=== PATIENT | male | born 1940 | race Caucasian/White ===

== ENCOUNTER 2017-09-10 11:05 | Emergency (ER) | payer OTHER, MEDICARE ==
[~2017-09-10] VITALS: Ht 175.3 cm; Wt 81.6 kg
--- NOTE | 2017-09-10 11:07 | ED GI/GU/ABDOMINAL COMPLAINT ---
History of Present Illness General Chief Complaint: General Adult Stated Complaint: KIDNEY STONE Source: patient, old records Exam Limitations: no limitations Vital Signs & Intake/Output Vital Signs & Intake/Output Vital Signs Date Time Temp Pulse Resp B/P B/P Pulse O2 O2 Flow FiO2 Mean Ox Delivery Rate 09/10 1401 97.8 94 18 128/81 97 Room Air Room Air 09/10 1114 Room Air 09/10 1109 98.4 84 22 135/84 96 Room Air Allergies Coded Allergies: NO KNOWN ALLERGIES (06/13/12) Triage Nurses Notes Reviewed? yes Onset: Gradual Duration: day(s): Timing: recent history Quality/Severity: sharpness, severe Severity Numbers: 9 Location: left flank HPI: 77YO MALE with hx of kidney stones, CAD s/p pacemaker and stent on plavix, BIBA to ED complaining of worsening kidney stone pain. Patient was recently diagnosed with 8 mm kidney stone, he is being evaluated by Dr. Butler. Patient is scheduled to have stone removal via stent on 09/17/17. Patient has been taking oxycodone 5 mg every 6 hours for pain. Patient states that today he was taking this medication was not helping his pain. Pain is described as left flank, sharp, /10. Patient called his urology office and they told him to try a double dose. Pain was still unrelieved so patient came to the emergency department. Patient reports nausea yesterday however no vomiting. Patient reports associated chills with his pain. Patient denies dysuria, hematuria, urinary retention, diarrhea, fevers. (Denise ISAAC,Rosy Reddy) Reconcile Medications Alfuzosin HCl (Alfuzosin HCl ER) 10 MG TAB.ER.24H 1 TAB PO DAILY UNKNOWN ( Reported) Clopidogrel Bisulfate (Clopidogrel) 75 MG TABLET 1 TAB PO DAILY BLOOD THINNER (Reported) Ezetimibe (Zetia) 10 MG TABLET 1 TAB PO DAILY CHOLESTEROL (Reported) Gemfibrozil 600 MG TABLET 1 TAB PO BID CHOLESTEROL (Reported) Metoprolol Succinate 25 MG TAB 1 TAB PO DAILY HEART (Reported) Oxycodone HCl/Acetaminophen (Percocet 5-325 MG Tablet) 5 MG-325 MG TABLET 1 TAB PO BID PRN pain Trazodone HCl 100 MG TABLET 1 TAB PO QPM SLEEP (Reported) (Kathy WATKINS,Matt Mustafa) Past History Medical History Any Pertinent Medical History? see below for history Cardiovascular: CAD Surgical History Surgical History: pacemaker, stent Psychosocial History What is your primary language Panamanian Family History Hx Contributory? No (Rosy Lucero) Review of Systems Review of Systems Constitutional: Reports: see HPI. EENTM: Reports: no symptoms. Respiratory: Reports: no symptoms. Cardiovascular: Reports: no symptoms. GI: Reports: no symptoms. Genitourinary: Reports: see HPI. Musculoskeletal: Reports: see HPI. Skin: Reports: no symptoms. Neurological/Psychological: Reports: no symptoms. Hematologic/Endocrine: Reports: no symptoms. Immunologic/Allergic: Reports: no symptoms. All Other Systems: Reviewed and Negative (Rosy Lucero) Physical Exam Physical Exam General Appearance: well developed/nourished, no apparent distress, alert, awake Head: atraumatic, normal appearance Eyes: Bilateral: normal appearance. Ears, Nose, Throat, Mouth: hearing grossly normal Neck: normal inspection, supple, full range of motion Respiratory: normal breath sounds, no respiratory distress, lungs clear Cardiovascular: regular rate/rhythm Gastrointestinal: normal bowel sounds, soft, non-tender, no organomegaly Back: normal inspection, normal range of motion, no CVA tenderness Extremities: normal range of motion Neurologic/Psych: awake, alert, oriented x 3 Skin: intact, normal color, warm/dry Core Measures ACS in differential dx? No Sepsis Present: No Sepsis Focused Exam Completed? No (Rosy Lucero) Progress Differential Diagnosis: bowel obstruction, inflamm bowel dis, prostatitis, pyelonephritis, SBO, ureterolithiasis, UTI/pyelo Plan of Care: Orders Procedure Date/time Status URINALYSIS 09/10 1107 Complete COMPREHENSIVE METABOLIC PANEL 09/10 1107 Complete CBC WITHOUT DIFFERENTIAL 09/10 1107 Complete Laboratory Tests 09/10/17 1150: Anion Gap 12, Estimated GFR 42 L, BUN/Creatinine Ratio 20.0, Glucose 99, Calcium 9.6, Total Bilirubin 0.8, AST 19, ALT 17 L, Alkaline Phosphatase 55, Total Protein 6.3, Albumin 3.8, Globulin 2.5, Albumin/Globulin Ratio 1.5, CBC w Diff NO MAN DIFF REQ, RBC 4.24 L, MCV 94.2 H, MCH 32.7 H, MCHC 34.7, RDW 12.6 , MPV 7.9, Gran % 82.6 H, Lymphocytes % 6.7 L, Monocytes % 9.9 H, Eosinophils % 0.5, Basophils % 0.3, Absolute Granulocytes 6.9 H, Absolute Lymphocytes 0.6 L, Absolute Monocytes 0.8 H, Absolute Eosinophils 0, Absolute Basophils 0 09/10/17 1134: Urinalysis MOD H, Urine Color JOAQUÍN, Urine Clarity HAZY H, Urine pH 6.0, Ur Specific [place] 1.015, Urine Protein TRACE H, Urine Ketones NEG, Urine Nitrite NEG, Urine Bilirubin NEG, Urine Urobilinogen 0.2, Ur Leukocyte Esterase TRACE H , Ur Microscopic SEDIMENT EXAMINED, Urine RBC PACKD H, Urine WBC RARE, Ur Epithelial Cells RARE, Urine Bacteria FEW H, Urine Mucus RARE, Urine Hemoglobin LARGE H, Urine Glucose NEG Xray from 09/07 shows 0.8cm kidney stone. Patient reports pain has improved from 01/17 to 05/19 following torodol 15mg. Spoke with Dr. Butler regarding this patient and his labs. If patient remains comfortable he can be discharged with short term prescription of ketorolac. Patient to reschedule cardiology clearance and have procedure scheduled for Wednesday. If symptoms worsen he'll report back to the emergency department for temporary procedure sooner. Patient feels comfortable going home at this time, he agrees with the plan of care. Dr. Chavez presents to see and evaluate the patient, he agrees with plan of care. Initial ED EKG: none (Denise ISAAC,Rosy Reddy) Departure Departure Disposition: HOME OR SELF CARE Condition: Stable Clinical Impression Primary Impression: Renal colic Secondary Impressions: Kidney stone Referrals: Raul WATKINS,Shola Mustafa (PCP/Family) Additional Instructions: Begin ketorolac (TORADOL) as prescribed as needed for pain. Try to limit this medication to once per day. You may take this medication with your oxycodone. If your symptoms worsen please return to the emergency department for further evaluation. Otherwise reschedule your appointment with cardiology for clearance prior to your urology procedure next Wednesday. Please note that there might be incidental findings in your evaluation that are unrelated to the current emergency department visit. Please notify your primary care doctor about this emergency department visit in order to obtain and review all of the testing performed so that these incidental findings can be monitored as needed. If you had an x-ray performed, please understand that some fractures may not be seen on the initial set of x-rays. If your symptoms persist you might need a repeat set of x-rays to check for such a fracture. If you had a laceration evaluated, please understand that foreign bodies such as glass or wood may not be visible to the naked eye or on plain x-rays. If the wound becomes red, swollen, increasingly more painful or if there is any drainage from the wound, please have it reevaluated by a physician for the possibility of a retained foreign body. If you're unable to follow up as outlined in the discharge instructions please return to the emergency department. Thank you for choosing the [facility] Emergency Department for your care. It was a pleasure to serve you today. Departure Forms: Customer Survey General Discharge Information (Denise ISAAC,Rosy Reddy) Departure Prescriptions: Current Visit Scripts Oxycodone HCl/Acetaminophen (Percocet 5-325 MG Tablet) 1 TAB PO BID PRN pain #10 TAB PA/COAL HANDLER Co-Sign Statement Statement: ED Attending supervision documentation- [X] I saw and evaluated the patient. I have also reviewed all the pertinent lab results and diagnostic results. I agree with the findings and the plan of care as documented in the PA's/COAL HANDLER's documentation. Patient presents for evaluation of renal colic pain. Patient has a diagnosed 8 mm kidney stone. Physical examination reveals a comfortable appearing gentleman after medications in the emergency department. [] I have reviewed the ED Record and agree with the PA's/COAL HANDLER's documentation. [] Additions or exceptions (if any) to the PAs/COAL HANDLER's note and plan are summarized below: [] (Kathy WATKINS,Matt Mustafa)
[2017-09-10 11:57] LABS: ABSOLUTE BASOPHIL COUNT 0 /CUMM (0.0-0.2); ABSOLUTE EOSINOPHIL COUNT 0 /CUMM (0.0-0.7); ABSOLUTE GRANULOCYTE CT 6.9 /CUMM (1.4-6.5); ABSOLUTE LYMPH COUNT 0.6 /CUMM (1.2-3.4); ABSOLUTE MONOCYTE COUNT 0.8 /CUMM (0.10-0.60); BASOPHIL % 0.3 % (0.0-2.0); EOSINOPHIL % 0.5 % (0-5); GRANULOCYTE % 82.6 % (42.2-75.2); HEMATOCRIT 39.9 % (42-52); MEAN CORPUSCULAR HGB 32.7 PG (27.0-31.0); MEAN CORPUSCULAR HGB CONC 34.7 G/DL (33.0-37.0); MEAN CORPUSCULAR VOLUME 94.2 FL (80.0-94.0); MEAN PLATELET VOLUME 7.9 FL (7.4-10.4); PLATELET COUNT 190 /CUMM (130-400); RBC DISTRIBUTION WIDTH 12.6 % (11.5-14.5); RED BLOOD CELL CT 4.24 /CUMM (4.70-6.10); WHITE BLOOD CELL COUNT 8.3 /CUMM (4.8-10.8)
[2017-09-10] MEDS ORDERED: ZETIA10 M1 PO (12:22)
[2017-09-10] MEDS ORDERED: METOPROLOL SUCC25 M1 PO (12:22)
[2017-09-10] MEDS ORDERED: ALFUZOSIN HCL E10 MG PO (12:22)
[2017-09-10] MEDS ORDERED: GEMFIBROZIL600 M1 PO (12:23)
[2017-09-10] MEDS ORDERED: TRAZODONE HCL100 M1 PO (12:23)
[2017-09-10] MEDS ORDERED: CLOPIDOGREL75 M1 PO (12:23)
[2017-09-10] MEDS ORDERED: KETOROLAC TROME10 M1 PO (13:32)
[2017-09-10] MEDS ORDERED: PERCOCET 5-3251 EACH PO (13:58)
[2017-09-10 14:01] VITALS: BP 128/81
[2017-09-16] MEDS ORDERED: CO Q-10100 MG PO (19:44)
[2017-09-16] MEDS ORDERED: VITAMIN D2000 UNIT PO (19:44)
[2017-09-16] MEDS ORDERED: MULTIVITAMINS1 EAC9 PO (19:44)
== END 2017-09-10 14:17 ==
LOC: ERH 11:05
PROVIDERS: Physician Assistant
DX: N23 Unspecified renal colic (principal); N20.0 Calculus of kidney
CPT/HCPCS: 81001; 96374; J1885

== ENCOUNTER 2017-09-17 01:13 | Inpatient (IN) | payer OTHER, MEDICARE ==
[~2017-09-17] VITALS: Ht 175.3 cm; Wt 78.5 kg
[~2017-09-17 01:13] MED LIST: ALFUZOSIN HCL E10 MG PO; CLOPIDOGREL75 M1 PO; CO Q-10100 MG PO; GEMFIBROZIL600 M1 PO; KETOROLAC TROME10 M1 PO; METOPROLOL SUCC25 M1 PO; MULTIVITAMINS1 EAC9 PO; PERCOCET 5-3251 EACH PO; TRAZODONE HCL100 M1 PO; VITAMIN D2000 UNIT PO; ZETIA10 M1 PO
--- NOTE | 2017-09-17 12:08 | Operative Report ---
Operative/Inv Procedure Report Surgery Date: 09/17/17 Name of Procedure: Cystoscopy, L ureteroscopy, laser lithotripsy of L kidney stone, insertion of L double J ureteral stent Pre-Operative Diagnosis: L renal calculus Post-Operative Diagnosis: same Estimated Blood Loss: less than 50ml Surgeon/Dialysis Equipment Technician: Syd Butler MD Anesthesia: laryngeal mask airway Drains: 26 cm, 6 fr L double J ureteral stent and 20 fr angelo Specimens: L renal stone fragments Complications: none Condition: stable Operative Indication: This patient in follow-up in the office for asymptomatic left renal calculus which was located in a calyx. Recently he developed left flank pain. Imaging showed that the stone had migrated to the left ureteropelvic junction. The patient. In the emergency room on one occasion required intravenous narcotics. Now scheduled for ureteroscopy and laser lithotripsy of the stone. Of note the patient had a coronary stent placed within the last several months. As per his mr teacher his aspirin was stopped his Plavix could not. Therefore the procedure was done on Plavix. Operative/Procedure Note Note: The patient was taken to the cystoscopy room and identified. He was placed in supine position on the table. Timeout was executed appropriately with the patient awake. Gen. anesthesia was induced via LMA.'s and placed in the dorsolithotomy position and prepped and draped in usual fashion. A surgical pause was executed appropriately. A fluoroscopy image was taken with a marker on the left side of the abdomen to confirm the correct side of surgery as well as the correct orientation of the fluoroscopy image. A 22 Angolan cystoscope sheath was placed into the bladder under direct vision using the 30 lens. Anterior urethra was normal. 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 3 cm in length. Upon entering the bladder cystoscopy was performed. The right and left ureteral orifices were normal in location and appearance. The bladder was mildly to moderately trabeculated. The L orifice was identified and the guidewire was placed through the cystoscope into the left ureter. Initially there was difficulty getting the guidewire past the stone. Eventually this was done. In the process the stone migrated proximally to a midpole calyx. The cystoscope was removed leaving the wire in place. A double-lumen dilating catheter was then placed. A guidewire was placed in the second lumen and the catheter removed. A ureteral access sheath was placed over one of the wires. The wire over which was passed was then removed. The flexible ureteroscope was advanced through the ureteral access sheath and up to the left kidney. The stone was visualized in the midpole calyx. Using the 275 holmium laser fiber the stone was fragmented into multiple small pieces. Using a 0 tip basket couple of the pieces were removed. The remaining pieces were felt to be small enough to pass spontaneously. Some contrast was injected through the flexible ureteroscope. Ureteroscope was then removed. The ureteral access catheter was then removed. The cystoscope was back loaded onto the safety wire. Under visual fluoroscopic control a 26 cm 6 Angolan left double-J ureteral stent was placed. A guidewire was then removed. Fluoroscopy confirmed the proximal and the stent coiled in the left kidney and the distal" in the bladder. A long suture was left attached the distal end of the stent exiting the urethra. At this point there was some bleeding from the prostatic urethra and since the patient was on Plavix was decided Angelo catheter would be placed. A 20 Angolan three-way Angelo was placed. The inflow port was occluded with a catheter plug and the drainage port placed to a leg bag. Patient tolerated the procedure well and as completion was taken recovery room in stable condition Findings: 1 cm left renal calculus Discharge Disposition: PACU
--- NOTE | 2017-09-17 15:39 | RADIOLOGY REPORT ---
EXAMINATION: XR ABDOMEN CLINICAL INDICATION: Left-sided ureteroscopy with laser and stent placement. COMPARISON: None. TECHNIQUE AND FINDINGS: C-arm fluoroscopic assistance is provided at the time of the procedure. 7 spot radiographs were obtained. The full procedural detail and findings will be dictated by Dr. Butler. FLUOROSCOPY TIME: 1 minute and 55 seconds. IMPRESSION: C-arm fluoroscopic assistance is provided at the time of the left-sided ureteroscopy and stent placement. Full procedural detail as well as the findings will be dictated by Dr. Butler.
--- NOTE | 2017-09-17 16:40 | Patient Discharge Instructions ---
Discharge Instructions General Discharge Information You were seen/treated for: L renal calculus You had these procedures: Surgery Date: 09/17/17 Name of Procedure: Cystoscopy, L ureteroscopy, laser lithotripsy of L kidney stone, insertion of L double J ureteral stent Watch for these problems: fever>101.3, increased pain, changes in appearance of fluid from angelo catheter (bleeding/clots) Other wound care: angelo catheter care Special Instructions: HOLD ASPIRIN UNTIL URINE CLEARS, THEN OK TO RESUME TAKING PRESCRIBED Diet Continue normal diet: Yes Recommended Diet: Heart Healthy Activity Full Activity/No Limits: No Activity Self Limited: Yes Activity Limited to: Weight bear as tolerated Acute Coronary Syndrome Inclusion Criteria At DC or during hospital stay patient has or had the following: ACS DIAGNOSIS No Discharge Core Measures Meds if any: Prescribed or Continued at Discharge Meds if any: NOT Prescribed or Continued at Discharge Congestive Heart Failure Inclusion Criteria At DC or during hospital stay patient has or had the following: CHF DIAGNOSIS No Discharge Core Measures Meds if any: Prescribed or Continued at Discharge Meds if any: NOT Prescribed or Continued at Discharge Cerebrovascular accident Inclusion Criteria At DC or during hospital stay patient has or had the following: CVA/TIA Diagnosis No Discharge Core Measures Meds if any: Prescribed or Continued at Discharge Meds if any: NOT Prescribed or Continued at Discharge Venous thromboembolism Inclusion Criteria VTE Diagnosis No VTE Type NONE VTE Confirmed by (Test) NONE Discharge Core Measures - Per Current guidelines, there needs to be overlap - treatment for the first 5 days of Warfarin therapy. - If discharged on Warfarin prior to 5 days of - overlap therapy, the patient will need to be - assessed for post discharge needs including - *Post discharge parental anticoagulation - *Warfarin and/or parental anticoagulation education - *Follow up date to check INR post discharge At least 5 days overlap therapy as Inpatient No Meds if any: Prescribed or Continued at Discharge Note: Overlap Therapy is Warfarin and Anticoagulant Meds if any: NOT Prescribed or Continued at Discharge
--- NOTE | 2017-09-17 16:45 | Surg Short-stay <48hrs Dis Sum ---
Visit Information Visit Dates Admission Date: 09/17/17 Discharge Date: 09/18/17 Surgical Short Stay DC Summary Admission Diagnosis: L renal calculus Final Diagnosis: same as above, s/p Surgery Date: 09/17/17 Name of Procedure: Cystoscopy, L ureteroscopy, laser lithotripsy of L kidney stone, insertion of L double J ureteral stent Procedure(s): Surgery Date: 09/17/17 Name of Procedure: Cystoscopy, L ureteroscopy, laser lithotripsy of L kidney stone, insertion of L double J ureteral stent Summary/Significant Findings: Electively scheduled cystoscopy, L ureteroscopy, laser lithotripsy of L kidney stone, insertion of L double J ureteral stent on 09/17/17 by , for history of left renal calculus. He was kept inpatient overnight as a 23 hour observation due to hematuria requiring angelo catheter with continued plavix, and lack of support at home. He was monitored overnight, diet advanced as tolerated, percocet ordered for pain control, angelo care reviewed, and case management assessed him for his needs prior to discharge to home on post-op day#1. Condition at Discharge: stable Discharge instructions provided to patient/family: Yes Post discharge follow-up plan: follow up with in the office next week ok to continue plavix angelo to remain in place Copies to: Raul WATKINS,Shola Mustafa
[2017-09-17 17:40] VITALS: BP 138/84
[2017-09-17 19:12] VITALS: BP 134/78
[2017-09-17 21:43] VITALS: BP 120/58
[2017-09-18 02:10] VITALS: BP 124/72
[2017-09-18 06:32] VITALS: BP 126/74
[2017-09-18 08:23] LABS: ABSOLUTE BASOPHIL COUNT 0 /CUMM (0.0-0.2); ABSOLUTE EOSINOPHIL COUNT 0 /CUMM (0.0-0.7); ABSOLUTE GRANULOCYTE CT 10.4 /CUMM (1.4-6.5); ABSOLUTE LYMPH COUNT 0.8 /CUMM (1.2-3.4); ABSOLUTE MONOCYTE COUNT 1.2 /CUMM (0.10-0.60); BASOPHIL % 0.1 % (0.0-2.0); EOSINOPHIL % 0.1 % (0-5); GRANULOCYTE % 83.6 % (42.2-75.2); HEMATOCRIT 35.4 % (42-52); MEAN CORPUSCULAR HGB 32.1 PG (27.0-31.0); MEAN CORPUSCULAR HGB CONC 33.6 G/DL (33.0-37.0); MEAN CORPUSCULAR VOLUME 95.6 FL (80.0-94.0); MEAN PLATELET VOLUME 7.8 FL (7.4-10.4); PLATELET COUNT 235 /CUMM (130-400); RBC DISTRIBUTION WIDTH 12.6 % (11.5-14.5); RED BLOOD CELL CT 3.71 /CUMM (4.70-6.10)
--- NOTE | 2017-09-18 09:08 | PN- Urology ---
Subjective Subjective: Patient had L ureteroscopy and laser litho of a L UPJ stone yesterday. In recovery room he was having significant pain likely from bladder spasms due to indwelling angelo and L ureteral stent. He did not feel he could manage this at home and was admitted. 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 He feels better this AM. Still with some discomfort from the angelo Objective Vital Signs and I&Os Vital Signs Date Time Temp Pulse Resp B/P B/P Pulse O2 O2 Flow FiO2 Mean Ox Delivery Rate 09/19 851 Room Air Room Air 09/18 0632 97.4 76 18 126/74 95 09/18 0210 98.1 80 18 124/72 96 09/17 2143 98.2 72 20 120/58 94 Room Air 09/17 1912 97.9 70 16 134/78 97 Room Air 09/17 1740 97.9 73 18 138/84 97 Room Air Intake & Output 09/18 1600 09/18 0800 09/18 0000 09/17 1600 09/17 0800 09/17 0000 Intake Total 920 640 Output Total 850 600 Balance 70 40 Intake, IV 800 400 Intake, Oral 120 240 Number 0 0 Bowel Movements Output, Urine 850 600 Patient 173 lb Weight Abd: soft and non tender Genitalia: angelo in place. Draining light red urine Laboratory Tests 09/18 0700 Chemistry Sodium (137 - 145 mmol/L) 141 Potassium (3.5 - 5.1 mmol/L) 4.4 Chloride (98 - 107 mmol/L) 109 H Carbon Dioxide (22 - 30 mmol/L) 21 L Anion Gap (5 - 16) 11 BUN (9 - 20 mg/dL) 24 H Creatinine (0.7 - 1.2 mg/dL) 0.9 Estimated GFR (>60 ml/min) > 60 BUN/Creatinine Ratio (7 - 25 %) 26.7 H Hematology CBC w Diff Pending WBC Pending RBC Pending Hgb Pending Hct Pending MCV Pending MCH Pending MCHC Pending RDW Pending Plt Count Pending MPV Pending Gran % Pending Lymphocytes % Pending Monocytes % Pending Eosinophils % Pending Basophils % Pending Absolute Granulocytes Pending Absolute Lymphocytes Pending Absolute Monocytes Pending Absolute Eosinophils Pending Absolute Basophils Pending Assessment/Plan Assessment/Plan Imp: 1. POD #1 s/p L ureteroscopy, laser litho of L renal calculus, and insertion of L ureteral stent. Admitted due to significant bladder spasms and gross hematuria Plan: 1. Angelo to remain in 2. Attempt to ambulate today. If able to ambulate well and care for angelo himself today then discharge later today. 3. Remain off abx Core Measures Venous Thromboembolism VTE Risk Factors Age>40 No Mechanical VTE Prophylaxis d/t Other (mechanical VTE in place) No VTE Pharm Prophylaxis d/t Other (Patient on plavix and hematuri) Comment: venodyne boots ordered and on
[2017-09-18 09:42] LABS: WHITE BLOOD CELL COUNT 12.4 /CUMM (4.8-10.8)
[2017-09-18 13:51] VITALS: BP 118/80
[2017-09-18 21:18] VITALS: BP 122/80
[2017-09-19 02:00] VITALS: BP 118/68
[2017-09-19 06:05] VITALS: BP 126/74
--- NOTE | 2017-09-19 09:40 | PN- Urology ---
Subjective Subjective: Complains of bladder spasms States not able to ambulate safely Objective Vital Signs and I&Os Vital Signs Date Time Temp Pulse Resp B/P B/P Pulse O2 O2 Flow FiO2 Mean Ox Delivery Rate 09/19 0605 98.3 78 18 126/74 93 09/19 0200 98.2 69 18 118/68 95 09/18 2118 99.8 69 122/80 91 Room Air 09/18 1351 98.4 75 20 118/80 95 Room Air 09/18 1029 70 122/88 Intake & Output 09/19 1600 09/19 0800 09/19 0000 09/18 1600 09/18 0800 09/18 0000 Intake Total 1300 920 640 Output Total 1500 850 600 Balance -1500 1300 70 40 Intake, IV 600 800 400 Intake, Oral 700 120 240 Number 1 0 0 Bowel Movements Output, Urine 1500 850 600 Patient 173 lb Weight Abd: soft and non tender Genitalia: angelo in place to gravity drainage. Urine still pink but improved since yesterday Assessment/Plan Assessment/Plan Imp: 1. s/p L ureteroscopy, laser litho and insertion of L ureteral stent. POD #2. 2. Post procedure hematuria due to cardiology recommendation that plavix not be held due to fairly recent coronary stent insertion 3. Remains in hospital due to gross hematuria and inability to ambulate safely Plan: 1. Continue angelo today. Will consider voiding trial in AM 2. Once urine is clear and angelo is out he would be cleared for discharge from urologic point of view. If still unable to ambulate safely at that time then STR may be needed Core Measures Venous Thromboembolism VTE Risk Factors Age>40 No Mechanical VTE Prophylaxis d/t Other (mechanical VTE in place) No VTE Pharm Prophylaxis d/t Other (Patient on plavix and hematuri) Comment: venodyne boots ordered and on
[2017-09-19 14:27] VITALS: BP 112/74
[2017-09-19 22:41] VITALS: BP 110/70
[2017-09-20 05:59] VITALS: BP 124/80
--- NOTE | 2017-09-20 06:46 | PN- Urology ---
Subjective Subjective: Comfortable other than bladder spasms Ambulated x 3 yesterday Objective Vital Signs and I&Os Vital Signs Date Time Temp Pulse Resp B/P B/P Pulse O2 O2 Flow FiO2 Mean Ox Delivery Rate 09/20 0559 98.0 73 20 124/80 94 09/19 2241 98.3 69 20 110/70 93 Room Air 09/19 1427 98.5 69 20 112/74 94 Room Air 09/19 1016 78 126/74 Intake & Output 09/20 0800 09/20 0000 09/19 1600 09/19 0800 09/19 0000 09/18 1600 Intake Total 641 067 4589 Output Total 2150 1500 Balance -1750 700 -1500 1300 Intake, IV 600 Intake, Oral 400 700 700 Number 1 1 Bowel Movements Output, Urine 2150 1500 Abd: soft and non tender Genitalia: angelo in place. Draining pink urine Extrems: No calf tenderness. Venodynes in place Assessment/Plan Assessment/Plan Imp: 1. s/p L ureteroscopy, laser litho and stent. Admitted post op due hematuria, from plavix, and inability to ambulate well 2. Post op hematuria contributed to by inability to stop plavix per cardiology Plan: 1. Angelo removed. Will check pvr q shift 2. Ambulate with PT 3. If voids adequately and able to ambulate adequately hopeful for discharge tomorrow AM Core Measures Venous Thromboembolism VTE Risk Factors Age>40 No Mechanical VTE Prophylaxis d/t Other (mechanical VTE in place) No VTE Pharm Prophylaxis d/t Other (Patient on plavix and hematuri) Comment: venodyne boots ordered and on
[2017-09-20 13:12] LABS: ABSOLUTE BASOPHIL COUNT 0 /CUMM (0.0-0.2); ABSOLUTE EOSINOPHIL COUNT 0.1 /CUMM (0.0-0.7); ABSOLUTE GRANULOCYTE CT 6.2 /CUMM (1.4-6.5); ABSOLUTE LYMPH COUNT 0.9 /CUMM (1.2-3.4); ABSOLUTE MONOCYTE COUNT 0.8 /CUMM (0.10-0.60); BASOPHIL % 0.1 % (0.0-2.0); EOSINOPHIL % 1.6 % (0-5); GRANULOCYTE % 77.3 % (42.2-75.2); HEMATOCRIT 35.6 % (42-52); MEAN CORPUSCULAR HGB 32.5 PG (27.0-31.0); MEAN CORPUSCULAR HGB CONC 34.7 G/DL (33.0-37.0); MEAN CORPUSCULAR VOLUME 93.9 FL (80.0-94.0); MEAN PLATELET VOLUME 7.9 FL (7.4-10.4); PLATELET COUNT 232 /CUMM (130-400); RBC DISTRIBUTION WIDTH 12.4 % (11.5-14.5); RED BLOOD CELL CT 3.79 /CUMM (4.70-6.10)
[2017-09-20 14:17] VITALS: BP 100/70
[2017-09-20 22:07] VITALS: BP 118/70
[2017-09-21 06:25] VITALS: BP 126/74
--- NOTE | 2017-09-21 07:07 | PN- Urology ---
Subjective Subjective: No complaints. Angelo out. Voiding spontaneously wit low pvr. Urine pink Objective Vital Signs and I&Os Vital Signs Date Time Temp Pulse Resp B/P B/P Pulse O2 O2 Flow FiO2 Mean Ox Delivery Rate 09/21 0625 98.1 74 20 126/74 94 Room Air 09/20 2207 98.6 69 20 118/70 94 Room Air 09/20 1417 97.7 68 20 100/70 94 Room Air 09/20 0850 76 124/80 Intake & Output 09/21 0800 09/21 0000 09/20 1600 09/20 0800 09/20 0000 09/19 1600 Intake Total 240 800 100 400 700 Output Total 260 825 696 846 5838 Balance -20 -825 175 -700 -1750 700 Intake, IV 0 Intake, Oral 240 800 100 400 700 Number 0 1 Bowel Movements Output, Urine 260 825 766 021 4342 Patient 173 lb Weight Weight Reported by Patient Measurement Method Back: No CVA tenderness Abd: soft and non tender. Bladder not palpable Genitalia: angelo out voiding spontaneously. PVR low by bladder scan Extrems: no calf tenderness. Venodynes in place Patient cleared for discharge by PT Assessment/Plan Assessment/Plan Imp: 1. s/p L ureteroscopy and laser litho of L kidney stone with stent placement 2. Post op hematuria due to plavix. Improved 3. Ambulation improved per PT Plan: 1. Discharge today 2. Continue plavix per cardiology 3. Remain off ASA until urine is clear then restart 4. Office f/u in 2 weeks with K[facility] before Core Measures Venous Thromboembolism VTE Risk Factors Age>40 No Mechanical VTE Prophylaxis d/t Other (mechanical VTE in place) No VTE Pharm Prophylaxis d/t Other (Patient on plavix and hematuri) Comment: venodyne boots ordered and on
--- NOTE | 2017-09-21 07:17 | Discharge Summary ---
Visit Information Visit Dates Admission Date: 09/17/17 Discharge Date: 09/21/17 Hospital Course Course Attending Physician: Luke WATKINS,Syd Hoover Primary Care Physician: Raul WATKINS,Shola Mustafa Hospital Course: He underwent L ureteroscopy and laser lithotripsy on 09/17/17. Due to discomfort from the angelo and gross hematuria he was admitted. Gradually the urine cleared and he was discharged home, voiding spontaneously with light pink urine. Complications: Post op hematuria due to plavix, which his extension supervisor said could not be stopped Allergies: Coded Allergies: Penicillins ("coma" 09/16/17) Sulfa (Sulfonamide Antibiotics) ("coma" 09/16/17) Tetanus Vaccines and Toxoid ("coma" 09/16/17) ciprofloxacin (From CIPRO) (LOW bp 09/16/17) Uncoded Allergies: WINE (SEVERE CRAMPS AND SYNCOPE 09/16/17) Significant Procedures: Cystoscopy, L ureteroscopy, laser lithotripsy of L kidney stone and insertion of L ureteral stent Disposition Summary Disposition Principal Diagnosis: L kidney stone Additional Diagnosis: Gross hematuria Discharge Disposition: home or self care Discharge Instructions General Discharge Information Code Status: Full Code Patient's Diet: Will resume all pre op meds except ASA. The ASA will be restarted when the urine clears completely Patient's Activity: As tolerated Follow-Up Instructions/Appts: Office f/u in 2 weeks with [facility] before Medications at Discharge Discharge Medications: Continue taking these medications: Ezetimibe (Zetia) 10 MG TABLET 1 Tablet ORAL DAILY Qty = 90 Alfuzosin HCl (Alfuzosin HCl ER) 10 MG TAB.ER.24H 1 Tablet ORAL DAILY Qty = 90 Metoprolol Succinate (Metoprolol Succinate) 25 MG TAB 1 Tablet ORAL DAILY Qty = 90 Trazodone HCl (Trazodone HCl) 100 MG TABLET 1 Tablet ORAL Every night as needed for SLEEP Qty = 30 Gemfibrozil (Gemfibrozil) 600 MG TABLET 1 Tablet ORAL TWICE DAILY Qty = 180 Clopidogrel Bisulfate (Clopidogrel) 75 MG TABLET 1 Tablet ORAL DAILY Qty = 90 Oxycodone HCl/Acetaminophen (Percocet 5-325 MG Tablet) 5 MG-325 MG TABLET 1 Tablet ORAL TWICE DAILY as needed for pain Qty = 10 Multiple Vitamin (Multivitamins) 1 EACH TABLET 1 Tablet ORAL DAILY Ubidecarenone (Co Q-10) 100 MG CAPSULE 1 Capsule ORAL DAILY Cholecalciferol (Vitamin D3) (Vitamin D) 2,000 UNIT CAPSULE 1 Capsule ORAL DAILY Copies To: Raul WATKINS,Shola Mustafa
[2017-09-21 08:00] VITALS: BP 126/74
== END 2017-09-21 09:16 | disposition home health service (06) | DRG 661 ==
LOC: STS 01:13 → PACUH 16:09 → EDBEDREQ 16:23 → ENRESERV 16:44 → 2NB 17:33 → ENPENDDIS 09-21 07:58 → 2NB 09-21 09:16
PROVIDERS: Physician Assistant; Urology
PROC: 0TC18ZZ Extirpation of Matter from Left Kidney, Via Natural or Artificial Opening Endoscopic (ICD-10-PCS; principal; 2017-09-17)
PROC: 0T778DZ Dilation of Left Ureter with Intraluminal Device, Via Natural or Artificial Opening Endoscopic (ICD-10-PCS; principal; 2017-09-17)
DX: N20.0 Calculus of kidney (principal); I11.9 Hypertensive heart disease without heart failure; R31.0 Gross hematuria; T45.525A Adverse effect of antithrombotic drugs, initial encounter; Y92.239 Unspecified place in hospital as the place of occurrence of the external cause; I25.10 Atherosclerotic heart disease of native coronary artery without angina pectoris; Z95.5 Presence of coronary angioplasty implant and graft; N32.89 Other specified disorders of bladder; R39.89 Other symptoms and signs involving the genitourinary system; Z88.1 Allergy status to other antibiotic agents; Z88.0 Allergy status to penicillin; Z88.2 Allergy status to sulfonamides; Z88.7 Allergy status to serum and vaccine
CPT/HCPCS: 2NBSP; 36415; 36592; 74018; 82436; 87086; 97116-GP; 97161-GP; C2617; G8978-GP; G8979-GP; G8980-GP; J1100; J1580; J2250; J2405; J7042; J7512